=== PATIENT | female | born 1990 | race Caucasian/White ===

== ENCOUNTER 2017-09-27 22:13 | Emergency (ER) | payer OTHER ==
[~2017-09-27] VITALS: Ht 167.6 cm; Wt 90.7 kg
[~2017-09-27 22:13] MED LIST: ALLERGY10 M1 PO; IBUPROFEN200 M1 PO; PRENA1 PLUS CO1 EACH PO
[2017-09-29] MEDS ORDERED: BENADRYL25 MG PO (14:01)
[2017-09-29] MEDS ORDERED: AFRIN15 ML NAS (14:01)
== END 2017-09-28 00:03 | disposition home or self-care (01) ==
LOC: ED 22:13
PROC: 0HQEXZZ Repair Left Lower Arm Skin, External Approach (ICD-10-PCS; principal; 2017-09-27)
DX: S51.812A Laceration without foreign body of left forearm, initial encounter (principal); F17.200 Nicotine dependence, unspecified, uncomplicated; Z88.8 Allergy status to other drugs, medicaments and biological substances; Z79.899 Other long term (current) drug therapy; W45.8XXA Other foreign body or object entering through skin, initial encounter
CPT/HCPCS: 12002; 90471; 90715; 99282

== ENCOUNTER 2018-05-21 11:56 | Inpatient (IN) | payer OTHER ==
[~2018-05-21] VITALS: Ht 167.6 cm; Wt 72.9 kg
[~2018-05-21 11:56] MED LIST changes: +AFRIN15 ML NAS; +BENADRYL25 MG PO
--- NOTE | 2018-05-21 15:51 | NUR ---
DR CORADO INTO SEE PT A THIS TIME, NEW ORDERS, STARTED IV FLUIDS AT 250MLS/HR FOR 4 HOURS. DUE TO DECREASED/SOFT BP. PT IS IN A ATTENDS.
--- NOTE | 2018-05-21 15:51 | NUR ---
pt arrived via streacher, three person transfer, pt woke up some moaned, did not open eyes. pt also given bath, and placed in hospital gown.
--- NOTE | 2018-05-21 17:03 | NUR ---
DR CORADO NOTIFED OF BP, BOULS ORDER CHANGED AT THIS TIME
--- NOTE | 2018-05-21 17:56 | NUR ---
PT REMAINS MEDICATED AT THIS TIME, PT BP HAS INCREASED IWTH THE BOLUS OF NS GIVEN. NO URINE OUTPUT OF THIS TIME, PT HAS BEEN TURNING SELF IN BED, SHE HAS NOT OPENED HER EYES YET, AND NO VERBAL RESPONSE WHEN SPOKE TO BY STAFF. HER ATENDS IS DRY AT THIS TIME.
--- NOTE | 2018-05-21 18:23 | NUR ---
PT CHANGED INTO A JUNCITIONAL RHYTHUM AT THIS TIME FROM A SR
--- NOTE | 2018-05-21 18:25 | NUR ---
PT INCONTENT OF URINE, ATTENDS CHANGED, PT OPEN EYES AND FOLLING DIRECTIONS AT THIS TIME, IT IS NOTED THAT PT HAS LARGE BRUSIE ON HER LEFT ANKLE AT THIS TIME.
--- NOTE | 2018-05-21 19:39 | NUR ---
REPORT RECEIVED AT 1900. IN TO SEE PT AT 1930. SHAKY AND RESTLESS. REPORTS FEELING COLD. SENSITIVE TO TOUCH. 1MG ATIVAN GIVEN IV. TEMP TAKEN, 100.4 TEMPORAL. WARM BLANKETS GIVEN. RAILS UPX4 AND BED ALARM ON. PT DOES NOT RECALL SEQUENCE OF EVENTS, HOWEVER ASKED IF HER CATS HAD BEEN FED. EXPLAINED THAT SHE IS IN THE HOSPITAL AND PLAN OF CARE. DENIES PAIN AT THIS TIME, DENIES NEEDS. INSTRUCTED TO CALL FOR ALL ASSISTANCE.
--- NOTE | 2018-05-21 20:13 | NUR ---
PT SITTING UP IN BED. LOOKING OUT WINDOW, STATES SHE NEEDS TO GET OUTSIDE TO TALK TO THE PEOPLE OUT THERE. REPORTS FEELING COLD, OFFERED WARM BLANKET. GAVE 4MG ZOFRAN IV AND 500MG TYLENOL PO. DR CORADO UPDATED RE: PT RESTLESSNESS. 1MG ATIVAN GIVEN IV X1 DOSE PER ORDER.
--- NOTE | 2018-05-21 20:25 | EKG ---
[facility] [address] [place] [id number] Signed Sinus tachycardia Possible Left atrial enlargement Borderline ECG No previous ECGs available Confirmed by MARCIE CORADO MD ([id number]) on 05/21/2018 8:25:08 PM Electronically Signed By: MARCIE CORADO MD 05/21/185 PATIENT NAME: GRAY CHAMPION ELKIN Electrocardiogram DATE OF : [birth year] PHYSICIAN: MARCIE CORADO MD REPORT #: [id number] REPORT IS CONFIDENTIAL AND NOT TO BE RELEASED WITHOUT AUTHORIZATION
--- NOTE | 2018-05-21 20:42 | NUR ---
PT REMAINS AGITATED AND RESTLESS, TALKING TO PEOPLE IN ROOM. THINKS THERE ARE PEOPLE OUTSIDE THE ROOM THAT ARE HER FRIENDS. UNABLE TO REMAIN CALM. 1MG ATIVAN GIVEN IV. IN CONSTANT MOVEMENT IN BED.
--- NOTE | 2018-05-21 21:41 | NUR ---
2109 PT UP TO BSC 2 PERSON ASSIST WITH REDIRECTION NEEDED. VOIDED 800ML DARK CONCENTRATED URINE. REMAINS AGITATED, FIDGETING, NON-SENSICAL AND IMPULSIVE SPEECH. 2.5MG HALDOL GIVEN IV. CURRENTLY NOW RESTING ASLEEP.
--- NOTE | 2018-05-22 00:24 | NUR ---
PT REMAINS ASLEEP. BED ALARM ON, RAILS UP X4.
--- NOTE | 2018-05-22 02:10 | NUR ---
PT ASLEEP. ROLLS OVER AT TIMES, NO S/S OF DISTRESS.
--- NOTE | 2018-05-22 04:47 | NUR ---
REMAINS ASLEEP. WHEN AWAKENS SLIGHTLY HR UP TO 110'S.
--- NOTE | 2018-05-22 05:44 | NUR ---
PT VERY DROWSY. UP TO BSC WITH 2 PERSON ASSIST. VOIDED 400ML OF DARK BROWN/CONCENTRATED URINE. GIVEN 500ML TYLENOL FOR TEMP 102.4 WITH SIPS CRANBERRY JUICE. PT DENIES FURTHER NEEDS. BACK TO BED, RAILS UP X4, BED ALARM ON.
--- NOTE | 2018-05-22 07:46 | NUR ---
PT ASLEEP AT THIS TIME, TEMP RECHECKED, STILL RUNNING LOW GRADE FEVER AT THIS TIME. BED IN LOW POSITION, SIDE RAILS X 4, AND BED ALARM ON AT THIS TIME.
--- NOTE | 2018-05-22 07:53 | NUR ---
PT TALKING WITH Angus CORADO THIS AM, ANSWERES QUESTIONS WHEN ASKED, PT AT THIS TIME IS WILLING TO STAY IN THE HOSPITAL TO RECEIVE CARE AND TREATMENT.
--- NOTE | 2018-05-22 09:55 | NUR ---
PT CONTIOUES TO SLEEP AT THIS TIME, AWAKENS WHEN SPOKEN TOO, DENIES THE NEED TO USE THE BEDSIDE COMMODE AT THIS TIME. WHEN PT IS MORE AWAKE WILL TRY TO SHOWER HER THIS AFTERNOON.
--- NOTE | 2018-05-22 11:37 | NUR ---
PT CONTIOUES TO SLEEP THIS AM, ONCE THE NS BOLUS IS COMPLETED PT IS WILLING TO TAKE A SHOWER. PT HAS TURNED HER TV ON.
--- NOTE | 2018-05-22 12:10 | NUR ---
PT UP TO THE SHOWER, SHE SHOWERED SELF AND AMBULATED TO AND TO 126. PT IS CURRENTLY SITTING AT THE SIDE OF THE BED EATTING LUNCH. PT IS ABLE TO FEED SELF. PT IS COOPERATIVE AT THIS TIME WITH HOSPITAL ROUTINE.
--- NOTE | 2018-05-22 12:31 | NUR ---
1MG ATAVIN GIVEN AT THIS TIME, TO HELP WITH THIWDRAWEL FROM [employer]. PT HAS ATE AND KEN-WELL SO FAR, HAS SOME TWITCHING AND HER SKIN IS VERY SENTIVIT TO TOUCH AT THIS TIME. PT PLACED BACK ON THE MONITOR AT THIS TIME ALSO.
--- NOTE | 2018-05-22 13:52 | NUR ---
PT IN BED APPEARS TO BE SLEEPING, APPEARS TO BE COMFORTABLE AND IS COOPERATIVE WITH HOSPITAL ROUTINE AT THIS TIME.
--- NOTE | 2018-05-22 15:10 | NUR ---
PT APPEARS TO BE RESTING COMFORTABLE AT THIS TIME, PT AWAKENS WHEN SPOKE TO. SPO2 90% ON ROOMAIR. PT DENIES THE NEED TO USE THE BS COMMODE.
--- NOTE | 2018-05-22 16:21 | NUR ---
PT MEDICATECD WITH TYLENOL 500MG PO FOR FEVER AND C/O LAST. PT CONTIOUES TO ELIGIO THE NEED TO USE THE BS COMMODE. DINNER ORDERED FOR PT.
--- NOTE | 2018-05-22 17:32 | NUR ---
PT IS SITTING UP IN THE BED TO EAT DINNER AT THIS TIME. PT IS FEEDING SELF AT THIS TIME. HAS NO C/O'S AT THIS TIME. PT IS CALM AND COOPERATIVE AT THIS TIME.
--- NOTE | 2018-05-22 18:16 | NUR ---
PT ATE MOST OF HER DINNER AND THEN BACK TO SLEEP. WHEN PT WAS AWAKE SHE DENIES THE NEED TO VOID. HER LAST IS BETTER. PT CONTIOUES TO BE COOPERATIVE WITH HOSPITAL ROUTINE AND STAFF.
--- NOTE | 2018-05-22 21:19 | NUR ---
REPORT RECEIVED AT 1900. PT ASLEEP AT THAT TIME. CURRENTLY EATING DINNER. DENIES NEEDS. NO NEED TO VOID.
--- NOTE | 2018-05-23 01:34 | NUR ---
HAD PT GET UP TO BSC TO VOID. VOIDED 850ML DARK TEA/BROWN COLORED URINE. NO OTHER NEEDS.
--- NOTE | 2018-05-23 06:29 | NUR ---
PT ASLEEP. RR EVEN AND UNLABORED.
--- NOTE | 2018-05-23 07:00 | NUR ---
REPORT RC'D FROM [facility]. REPORTS PT SLEPT WELL THROUGHOUT NIGHT. PT IN BED WITH EYES CLOSED, RESPIATIONS EVEN AND UNLABORED, NO ACUTE DISTRESS NOTED.
--- NOTE | 2018-05-23 08:30 | NUR ---
PT RESTING IN BED, DROSWY BUT RESPONDS TO VERBAL STIMULI, SLOW TO RESPOND. RESPIRATIONS EVEN AND UNLABORED, BUL CLEAR, BLL DIMINSHED, NO COUGH, OXYGEN SATURAION 90'S ON RA. TOLERATING REGULAR DIET. LAC IV SIE PATENT, FLUSHED, WNL, DSNS WIH 20 MEQ POTASSIUM INFUSING AT 125 ML/HR. PT REFUSING SCD. CALL LIGHT WITHIN REACH. BREAKFAST AT BEDSIDE.
--- NOTE | 2018-05-23 10:00 | NUR ---
PT RESTING IN BED WITH EYES CLOSED, REPIRATIONS EVEN AND UNLABORED, NO ACUTE CAHNGES.
--- NOTE | 2018-05-23 12:00 | NUR ---
PT RESTING IN BED WITH EYES CLOSED, RESPIRATIONS EVEN AND UNLABORED, 96% ON RA, BUL CLEAR, BLL DIMINISHED, NO COUGH. PT REMAINS DROWSY BUT EASILY AWAKENS WITH VERBAL STIMULI. VITAL SIGNS OBTAINED. D5NS WITH 20 MEQ OF POTASSIUM INFUSING AT 125 ML/HR. DENIES OTHER NEEDS CALL LIGHT WITHIN REACH.
--- NOTE | 2018-05-23 12:30 | NUR ---
PT CONTINUES TO BE DROWSY AND RESPONSIVE TO VERBAL STIMULI. PT STATES SHE "FEELS WARM," OAL TEMP NOTED TO BE 100.1, WILL REASSESS.
--- NOTE | 2018-05-23 13:00 | NUR ---
ORAL TEMP REASSESSED AND NOTED TO BE 100. WILL CONTINUE TO MONITOR. DENIES OHER NEEDS. CALL LIGHT WITHIN REACH.
--- NOTE | 2018-05-23 13:26 | NUR ---
PT TOLD SOHAN DILL THAT SHE DID NOT TO HAVE ANY VISITORS. I WILL HONOR THAT WISH AND BE AVAILABLE NEEDED
--- NOTE | 2018-05-23 14:19 | NUR ---
PT RESTING COMFORTABLY IN BED WITH EYES CLOSED, RESPIRATIONS EVEN AND UNLABORED, NO ACUTE CHANGES. SCHEDULED FLAGYL INFUSING AT 200 ML/HR AND D5NS WITH 20 MEQ POTASSIUM INFUSING AT 125 ML/HR.
--- NOTE | 2018-05-23 15:00 | NUR ---
PT RESTING WITH EYES CLOSED. NO ACUTE CHANGES.
--- NOTE | 2018-05-23 16:00 | NUR ---
PT REFUSING DINNER ORDER STATING "I DON'T EAT THIS MUCH NORMALLY AND IT'S MAKING ME FEEL SICK." PT REQUESTING LIQUIDS AND MOUNTAIN DEW. ORAL TEMP REASSESSED AND NOTED TO BE 99.2. IV SITE DC'D PER PT'S REQUEST, WNL. DENIES OTHER NEEDS. CALL LIGHT WITHIN REACH.
--- NOTE | 2018-05-23 18:00 | NUR ---
NO ACUTE CHANGES. PT RESTING AT THIS TIME.
--- NOTE | 2018-05-23 22:24 | NUR ---
PT UP TO BSC TO VOID. VS TAKEN. NO NEEDS.
--- NOTE | 2018-05-24 07:03 | NUR ---
PT SLEPT THROUGHOUT THE NIGHT.
--- NOTE | 2018-05-24 07:30 | NUR ---
up to commode to void, C/O NUMBNESS IN BODY. DENIES PAIN. BACK TO BED. BREAKFAST ORDERED.
--- NOTE | 2018-05-24 08:00 | NUR ---
ASSESSMENT DONE. STATES LESS NUMB. DE. RASCH HERE. PT TO BE TRANSFERRED TO MEDICAL FLOOR.
--- NOTE | 2018-05-24 08:39 | NUR ---
TOOK BREAKFAST FAIR. IV SITE TO LAC NON-FUNCTIONAL. DC'D.
--- NOTE | 2018-05-24 09:25 | NUR ---
REPORT TO MED-SURG. MONITOR DC'D
--- NOTE | 2018-05-24 09:30 | NUR ---
RECEIVED REPORT FROM SOHAN RICE. PT IS AFEBRILE THIS MORNING. IV BEING PLACED NOW. PT IS HOMELESS. REGULAR DIET. PT NEEDS SHOWER TODAY.
--- NOTE | 2018-05-24 09:36 | NUR ---
THIS RN TO ROOM FOR PIV START. PT REQUESTS ASSSITANCE TO USE BEDSIDE COMODE. 800ML OF LOOSE STOOL, URINE MIX NOTED. PT BACK TO BED WITHOUT INCIDENT. PIV STARTED IN RFA PER PROTOCOL, BLOOD RETURN NOTED. SOHAN RICE AT BEDSIDE.
--- NOTE | 2018-05-24 09:40 | NUR ---
AMBULATORY TO ROOM 107 FROM 129. STABLE ON FEET. REMAINS WITH FLAT AFFECT. STATES I JUST WANT TO SLEEP.
--- NOTE | 2018-05-24 09:45 | NUR ---
ASSESSMENT COMPLETE. PT DENIES PAIN AT THIS TIME. IV ROCEPHIN ADMINISTED BEFORE TRANSFER. IV SITE FLUSHES WNL AND SALINE LOCKED. FLAT AFFECT. ICE CUP, ICE WATER, AND DRINK AT BEDSIDE. NO NEEDS AT THIS TIME. CALL LIGHT NEXT TO PT.
--- NOTE | 2018-05-24 12:00 | NUR ---
IN ROOM TO CHECK ON PT. PT APPEARS TO BE SLEEPING, EYES CLOSED. UNLABORED BREATHING. CALL LIGHT NEXT TO PT.
--- NOTE | 2018-05-24 13:32 | NUR ---
PATIENT STANDING IN MIDDLE OF ROOM NAKED AND HOLDING GOWN. PATIENT COMPLAINED OF BEING HOT SO SHE TOOK THE GOWN OFF AND WANTED A NEW GOWN. NEW GOWN PROVIDED. PATIENT NOW IN BED AND WANTS A WARM BLANKET BECAUSE SHE IS COLD. WARM BLANKET PROVIDED. CALL LIGHT IN REACH. NO FURTHER NEEDS AT THIS TIME.
--- NOTE | 2018-05-24 14:24 | NUR ---
IN ROOM TO ADMIN ABX. ABX INFUSING WNL. PT UP TO RESTROOM TO VOID X1. ASSESSMENT COMPLETE. PT DENIES PAIN AT THIS TIME. PT MORE TALKATIVE AND INTERACTIVE AT THIS TIME.
--- NOTE | 2018-05-24 15:30 | NUR ---
PT UP WALKING AROUND HALLWAY. WHEN TRYING TO REDIRECT PT, PT UNCOOPERATIVE, STATES SHE DOES NOT WANT TO WALK AROUND IN HALLWAY AND WANTS TO GO OUTSIDE. PT REDIRECTED BACK TO HER ROOM. DINNER IN ROOM. DR. BARRY CALLED, IN ROOM TO SEE PT.
--- NOTE | 2018-05-24 15:30 | NUR ---
PT AND BELONGINGS TRANSFERRED TO ROOM 123. WARM BLANKET AND ICE GIVEN PER PT REQUEST. CALL LIGHT NEXT TO PT.
--- NOTE | 2018-05-24 17:45 | NUR ---
IN ROOM TO ADMIN ABX. DC'D PTS IV. PT EDUCATED ON REASON WHY SHE IS MOVING TO NEW ROOM. PT STATES SHE WILL TALK TO SOMEONE IF SHE FEELS LIKE SHE WANTS TO LEAVE. PT TRANSFERRED TO ROOM 120. PT REQUESTED WARM BLANKET, ICE WATER, AND COLORING/ DRAWING SUPPLIES TO HELP WITH ANXIETY. [employer] CALLED TO CONSULT PT.
--- NOTE | 2018-05-24 18:14 | NUR ---
PT TRANSFERRED FROM CCU TODAY. ABX ADMINISTERED PRESCRIBED. SCRAPES AND BRUISES THROUGHOUT BILATERAL LEGS. PT IS INDEPENDENT IN ROOM. IV D/C'D. AFEBRILE THROUGHOUT SHIFT. DURING SHIFT, PT WALKED AROUND HALLWAY APPEARING IF SHE WAS GOING TO LEAVE. PT DIRECTED BACK TO ROOM AND TRANSFERRED TO ROOM CLOSER TO NURSES STATION. PT VERBALIZED SHE WOULD STAY ANOTHER NIGHT, IF SHE FELT SHE NEEDED TO LEAVE PT STATED SHE WOULD TALK TO STAFF. PT RECIEVING ORAL ABX AT THIS TIME. REGULAR DIET.
--- NOTE | 2018-05-24 18:34 | NUR ---
[facility] HERE TO SEE PT. UPDATED ON PTS CONDITION AND HISTORY. [facility] IN ROOM TO SEE PT.
--- NOTE | 2018-05-24 19:05 | NUR ---
REPORT RECIEVED. PT RESTING IN BED. NO NEEDS AT THIS TIME. CALL LIGHT WITHIN REACH.
--- NOTE | 2018-05-24 21:55 | NUR ---
IN ROOM TO ADMIN EVENING MEDS. SHIFT ASSESSMENT COMPLETE. PT AOX4, PT DROWSY, FLAT AFFECT. DOESN'T RESPOND TO QUESTIONS IMMEDIATELY. PT LS CLEAR, BT ACTIVE. PT STATES NO BM TODAY. ABD NONTENDER. DENIES ANY PAIN OR NAUSEA. C/O FEELING WARM, GIVEN WET CLOTH FOR HEAD FOR COMFORT. VSS. T: 98.6. HEART SOUNDS REGULAR. PULSES EQUAL BILATERALLY. NO NEEDS AT THIS TIME. CALL LIGHT WITHIN REACH.
--- NOTE | 2018-05-24 22:59 | NUR ---
CALL LIGHT ANSWERED, SBA TO SHOWER. PT INSTRUCTED TO USE CALL LIGHT FOR ASSISTANCE, VERBALIZES UNDERSTANDING. ALEX CHANGED, PT ON MENSUS.
--- NOTE | 2018-05-24 23:30 | NUR ---
CALL LIGHT ANSWERED, PT ASSISTED INTO CLEAN GOWN, ICE WATER, SODA PROVIDED. PT HAS CALL LIGHT IN REACH. NO ADDL REQUESTS.
--- NOTE | 2018-05-25 01:40 | NUR ---
PT RESTING IN BED. STATES THAT HER HEAD FEELS WARM. NEW COLD WASH CLOTH PROVIDED. NO FURTHER NEEDS AT THIS TIME. CALL LIGHT WITHIN REACH.
--- NOTE | 2018-05-25 04:11 | NUR ---
PT APPEARS TO BE SLEEPING. BREATHS EVEN, UNLABORED. NO NEEDS AT THIS TIME. CALL LIGHT WITHIN REACH. HYDRATION AT BEDSIDE.
--- NOTE | 2018-05-25 05:35 | NUR ---
PT SLEPT THROUGHOUT MOST OF NIGHT. PT DID SHOWER THIS SHIFT. PT GIVEN COLD WASH CLOTH FOR "WARM HEAD" PT AFEBRILE. VSS. LS CLEAR, BT ACTIVE, HEART SOUNDS REGULAR. PULSES EQUAL. URINE OUTPUT QS. NO BM THIS SHIFT. TOLERATING REGULAR DIET WELL. PT DROWSY, SLOW TO RESPOND TO QUESTIONS, ORIENTED TO SELF AND PLACE.
--- NOTE | 2018-05-25 05:45 | NUR ---
CALL LIGHT ANSWERED, PT C/O BEING "HOT". PT ASSISTED TO CHANGE GOWN, LINENS CHANGED, COOL WASH CLOTH PROVIDED. PT DENIES PAIN. COMPLIANCE MGR IN ROOM FOR LAB DRAW. VITALS STABLE, AFEBRILE. SBA TO RESTROOM FOR VOID AND BACK TO BED. CALL LIGHT IN REACH.
--- NOTE | 2018-05-25 07:06 | NUR ---
RECEIVED REPORT FROM SOHAN ORTIZ. PT SLEEPING AT THIS TIME. 24 HOUR HOLD PER [email or web address]. PT AFEBRILE AT THIS TIME. ORAL ABX.
--- NOTE | 2018-05-25 07:46 | NUR ---
ASSESSMENT COMPLETE. PT JUST RECEIVED A SHOWER. BACK IN BED. ORAL ABX ADMINISTERED. BREAKFAST ORDERED. ASSESSMENT COMPLETE. PT DENIES PAIN. PT STATES SHE "FEELS LIKE THE LIGHTS ARE LOOKING AT HER". ICE WATER AT BEDSIDE, WARM BLANKETS GIVEN. CALL LIGHT NEXT TO PT.
--- NOTE | 2018-05-25 09:47 | NUR ---
PATIENT RESTING IN BED. VITALS AND I&O DONE.BLOOD PRESURE LOW. RN NOTIFIED. . CALL LIGHT WITHIN REACH. NO OTHER NEEDS AT THIS TIME.
[2018-05-25] MEDS ORDERED: METRONIDAZOLE500 MG PO (10:21)
[2018-05-25] MEDS ORDERED: CEPHALEXIN500 MG PO (10:21)
[2018-05-25] MEDS ORDERED: ONDANSETRON ODT4 MG SL (10:21)
--- NOTE | 2018-05-25 10:22 | NUR ---
T[facility]ED TO [facility] REGARDING POSSIBLE DISCHARGE, HE STATED THEY HAD NO REASON TO HOLD PT. DR BARRY STATED THAT HE IS GOING TO DISCHARGE HER NOW WITH PO AB. CALLED PHARM REGARDING FILLING SCRIPT. CALLED POLICE DEPARTMENT REGARDING WARRANT AND DISCHARGE. DISPATCH WOOD STATED THAT HE WOULD LET THEM KNOW.
--- NOTE | 2018-05-25 10:30 | NUR ---
IN ROOM TO ADMINISTER ABX. PT LAYING IN BED, FLAT AFFECT. DR. BARRY IN ROOM TO DISCUSS D/C PLAN. ABX ADMINISTERED. NO REQUESTS FROM PT AT THIS TIME. ALL PT QUESTIONS ANSWERED.
[2018-05-25] MEDS ORDERED: KEFLEX500 MG PO (10:49)
--- NOTE | 2018-05-25 11:18 | NUR ---
IN ROOM TO DISCUSS D/C INFORMATION WITH PT. PT EDUCATED ON IMPORTANCE OF TAKING ALL PRESCRIBED ABX. PT VERBALIZED UNDERSTANDING AND ALL PT QUESTIONS WERE ANSWERED. D/C VITALS COMPLETED. PT GIVEN SCRUBS TO WEAR AT D/C.
--- NOTE | 2018-05-25 12:10 | NUR ---
PT AMBULATED TO FRONT OF HOSPTAL WITH BELONGINGS. TAXI C[employer] RIDE PROVIDED TO PT, PT STATED SHE WAS GOING TO MAIN STREET. ABX GIVEN TO PT FROM PHARMACY.
== END 2018-05-25 12:00 | disposition home or self-care (01) | DRG 871 ==
LOC: ED 11:56 → CCU 14:50 → MS 05-24 09:45
PROVIDERS: ADMIT Internal Medicine
DX: A41.51 Sepsis due to Escherichia coli [E. coli] (principal); G92 Toxic encephalopathy; N39.0 Urinary tract infection, site not specified; N76.0 Acute vaginitis; F15.10 Other stimulant abuse, uncomplicated; E87.6 Hypokalemia; L98.9 Disorder of the skin and subcutaneous tissue, unspecified; F29 Unspecified psychosis not due to a substance or known physiological condition; Z59.0 Homelessness; Z85.71 Personal history of Hodgkin lymphoma
CPT/HCPCS: 36415; 51701; 71045; 80048; 80053; 81001; 83605; 83735; 84100; 84484; 84703; 85025; 87077; 87088; 87186; 87210; 87491; 87591; 93005; 93010; 96361; 96374; 96375; 99285; G0480; J0696; J1630; J2060; J2405; J3475; J3480; J7030